=== PATIENT | female | born 1990 | race Caucasian/White ===

== ENCOUNTER 2022-03-29 20:51 | Emergency (ER) | payer OTHER ==
[~2022-03-29 20:51] MED LIST: MACROBID100 MG PO; NORCO 7.5-3251 EACH PO
[2022-03-29 21:43] LABS: BASOPHIL 0.4 % (0-2); EOSINOPHIL 0.7 % (0-5); HCT 42.1 % (37.0-47.0); HGB 13.5 g/dl (12.5-16.0); MCH 29.9 pg (25.0-31.0); MCHC 32.1 g/dL (32.0-36.0); MCV 93.3 fL (78.0-100.0); MPV 10.2 fL (6.0-9.5); NEUTROPHIL 61.6 % (41-80); NRBC 0; PLT 313 K/uL (150-400); RBC 4.51 M/uL (4.20-5.40); RDW 13.2 % (11.5-14.0); WBC 12.1 K/uL (4.0-10.5)
[2022-03-29 21:58] LABS: ALBUMIN 3.6 g/dL (3.4-5.0); BILIRUBIN - TOTAL 0.5 mg/dL (0.2-1.0); BUN/CREAT RATIO (CALC) 12.4 RATIO; CREATININE 0.89 mg/dL (0.51-0.95); GLOBULIN (CALCULATION) 3.4 g/dL; POTASSIUM 3.9 mmol/L (3.5-5.1)
[2022-03-29 22:54] LABS: CORONAVIRUS 2019 SARS-COV-2 NEGATIVE (NEGATIVE); INFLUENZA A NAA NEGATIVE (NEGATIVE)
[2022-03-29 23:11] LABS: BILIRUBIN NEGATIVE (NEGATIVE); BLOOD NEGATIVE Ery/uL (NEGATIVE); CLARITY CLEAR (CLEAR); COLOR YELLOW (YELLOW); GLUCOSE (U) NORMAL (NORMAL); LEUKOCYTES NEGATIVE Leu/uL (NEGATIVE); NITRITE NEGATIVE (NEGATIVE); PROTEIN NEGATIVE (NEGATIVE); SPECIFIC GRAVITY >=1.030 (1.001-1.030); UROBILINOGEN 0.2 mg/dL (0.2-1.0)
== END 2022-03-30 00:29 | disposition home or self-care (01) ==
LOC: FER 20:51
PROVIDERS: Emergency Medicine
DX: I45.10 Unspecified right bundle-branch block (principal); R42 Dizziness and giddiness; R00.2 Palpitations; Z20.822 Contact with and (suspected) exposure to COVID-19; Z87.891 Personal history of nicotine dependence; Z88.5 Allergy status to narcotic agent
CPT/HCPCS: 36415; 80053; 81001; 84484; 85025; 93005; J7030; U0002

== ENCOUNTER 2022-06-01 13:54 | Emergency (ER) | payer OTHER ==
[2022-06-01 14:43] LABS: BASOPHIL 0.4 % (0-2); EOSINOPHIL 0.2 % (0-5); HCT 44.1 % (37.0-47.0); HGB 14.2 g/dl (12.5-16.0); LYMPHOCYTE 12.3 % (15-48); MCH 30.2 pg (25.0-31.0); MCHC 32.2 g/dL (32.0-36.0); MCV 93.8 fL (78.0-100.0); MONOCYTE 7.1 % (0-12); NEUTROPHIL 79.7 % (41-80); NRBC 0; PLT 339 K/uL (150-400); RDW 12.9 % (11.5-14.0); WBC 13.2 K/uL (4.0-10.5)
[2022-06-01 15:07] LABS: BUN/CREAT RATIO (CALC) 14.3 RATIO; CREATININE 0.84 mg/dL (0.51-0.95); POTASSIUM 4.3 mmol/L (3.5-5.1)
[2022-06-01] MEDS ORDERED: ANTIVERT25 MG PO (15:18)
== END 2022-06-01 15:58 | disposition home or self-care (01) ==
LOC: FER 13:54
PROVIDERS: Emergency Medicine
DX: R42 Dizziness and giddiness (principal); Z88.5 Allergy status to narcotic agent
CPT/HCPCS: 36415; 80048; 84443; 85025; 93005; J3360